=== PATIENT | male | born 1960 | race Caucasian/White ===

== ENCOUNTER 2021-04-04 13:46 | Emergency (ER) | payer OTHER ==
--- NOTE | 2021-04-04 13:54 | ED Physician Documentation ---
PD HPI LOWER EXT INJURY - Stated complaint Stated Complaint: LT KNEE INJURY - Chief complaint Chief Complaint: Ext Problem - History obtained from History obtained from: Patient - History of Present Illness PD HPI LOW EXT INJURY LOCATION: Left, Knee Type of injury: Blunt / blow (he did not have any forceful impact. He was crawling on hands and knees the past few days, and noted onset of pain anterior knee, with swelling later that evening when to motel.). No: Fall, Twist Where injury occurred: Work Timing - onset: How many days ago (2-3) Timing - duration: Days (2-3) Timing - details: Gradual onset, Still present (worsened the past day, with pain on walking (flexion/extension) and swelling anterior knee.) Improved by: No: Rest, Meds (Ibuprofen was helping initially but not the past day.) Worsened by: Moving, Palpating Associated symptoms: Swelling. No: Weakness, Numbness, Discolored Similar symptoms before: Has not had sx before Recently seen: Not recently seen Review of Systems Constitutional: denies: Fever, Chills Nose: denies: Rhinorrhea / runny nose, Congestion Throat: denies: Sore throat Respiratory: denies: Cough GI: denies: Nausea, Vomiting, Diarrhea Skin: denies: Rash, Lesions, Abrasion (s), Laceration (s) Musculoskeletal: reports: Joint pain, Extremity swelling (anterior left knee). denies: Back pain Neurologic: denies: Focal weakness, Numbness PD PAST MEDICAL HISTORY - Past Medical History Cardiovascular: None Respiratory: None Musculoskeletal: None, Other (no history of gout) - Present Medications Home Medications: Ambulatory Orders Medication Instructions Recorded Confirmed HYDROcod/ACETAM 5/325 [[place] 5/325] 1 ea PO Q6H PRN #18 tablet 04/04/21 Ibuprofen [Motrin] 600 mg PO TID PRN #25 tab 04/04/21 - Allergies Allergies/Adverse Reactions: Allergies Allergy/AdvReac Type Severity Reaction Status Date / Time Sulfa (Sulfonamide Allergy Unknown Verified 04/04/21 13:50 Antibiotics) PD ED PE NORMAL - Vitals Vital signs reviewed: Yes - General General: Alert and oriented X 3, Well developed/nourished, Other (limping gait with holding leg straight.) - Derm Derm: Normal color, Warm and dry - Extremities Extremities: Other (left knee with anterior tenderness, swelling, and bursal effusion. SOme redness but not warm. NO skin lesions/wounds. No posterior nor lateral tednerness nor main joint effusion. ) - Neuro Neuro: No motor deficit, No sensory deficit Results - Vitals Vitals: Vital Signs - 24 hr 04/04/21 04/04/21 13:50 15:11 Temperature 36.5 C Heart Rate 79 72 Respiratory 16 18 Rate Blood Pressure 150/80 H 155/87 H O2 Saturation 97 93 Oxygen O2 Source Room air - Rads (name of study) left knee Radiology: Prelim report reviewed (no fracture), See rad report PD MEDICAL DECISION MAKING - ED course Complexity details: considered differential (seems anterior bursitis. ), d/w patient Departure - Departure Disposition: 01 Home, Self Care Clinical Impression: Prepatellar bursitis of left knee Condition: Stable Record reviewed to determine appropriate education?: Yes Instructions: ED Bursitis Prescriptions: Ibuprofen [Motrin] 600 mg PO TID PRN #25 tab PRN Reason: Pain HYDROcod/ACETAM 5/325 [[place] 5/325] 1 ea PO Q6H PRN #18 tablet PRN Reason: Pain Comments: Your knee x-ray is normal. This just means no obvious bony cause for the pain. Your symptoms and exam would be suggestive of an acute inflammation of the cushion in the front of the knee called the bursa (prepatellar bursitis). Use the knee brace to help support the knee and range of motion. You can have this off when rested but have it on when you are up and around. Ibuprofen 3 times a day with food for pain and inflammation. To that add Tylenol or hydrocodone if needed for pain. Follow-up with your primary care clinic when back home in the next few days. I am prescribing a short course of narcotic pain medication for you. These are potentially dangerous and addictive medications that should be used carefully. These medications may constipate you. Take an kymo-cjk-oudkeyy stool softener such as docusate twice daily with plenty of water while taking these medications. If you go 24 hours without a bowel movement, take [id number] MiraLAX, per package instructions. Do not drink or drive while taking these medications. If you received narcotic or sedating medications while in the emergency department do not drive for 24 hours. Store this medication in a safe, secure place and out of reach of children. It is a violation of federal law to give or sell this medication to another person or to use in a manner other than prescribed. The ED will not refill narcotic prescriptions, including prescriptions lost or stolen. You can dispose of unwanted medications at the [facility]'s office or at several pharmacies such as [facility]. Forms: Activity restrictions Discharge Date/Time: 04/04/21 15:11
[2021-04-04] MEDS ORDERED: DEXAMETHASONE 10 MG/ML VIAL PO STA (14:12)
[2021-04-04] MEDS ORDERED: CHERRY SYRUP 10 ML UDC PO ONE (14:12)
[2021-04-04] MEDS ORDERED: IBUPROFEN 600 MG TABLET PO STA (14:12)
[2021-04-04] MEDS ORDERED: HYDROcod/ACETAM 5/325 MG TABLET PO STA (14:12)
--- NOTE | 2021-04-04 14:54 | XRAY Report ---
PROCEDURE: Knee 3 View LT INDICATIONS: knee pain for few days TECHNIQUE: 3 views of the left knee(s) were acquired. COMPARISON: None. FINDINGS: Bones: No fractures or dislocations. No suspicious bony lesions. Soft tissues: No joint effusion. No significant joint space narrowing. No suspicious soft tissue ashwini cifications. Arterial vascular calcifications in the thigh and posterior knee. IMPRESSION: No acute bony abnormality. Reviewed by: Salinas Lynch on 04/04/2021 1:52 PM ROSE Approved by: Salinas Lynch on 04/04/2021 1:52 PM ROSE Station ID: [id number]
[2021-04-04 15:11] VITALS: BP 155/87
== END 2021-04-04 15:11 | disposition home or self-care (01) ==
LOC: ED 13:46
DX: M70.42 Prepatellar bursitis, left knee (principal)
CPT/HCPCS: 73562; 99283; A9270